=== PATIENT | female | born 1995 | race Caucasian/White ===

== ENCOUNTER 2017-05-12 07:25 | Emergency (ER) | payer OTHER ==
[~2017-05-12] VITALS: Ht 160 cm; Wt 71.7 kg
--- OUTSIDE RECORDS SUMMARY | 2017-05-12 07:32 | XMS REPORT ---
Author Author TONIO TORRES Organization [facility] Address [address] [place] [address] Care Team Providers Care Film Historian Name Role Phone TONIO TORRES Unavailable PROBLEMS Unknown Problems ALLERGIES Substance Reaction Event Type Date Status N.K.D.A. Unknown Non Drug Allergy Mar, Unknown SOCIAL HISTORY No smoking Hx information available PLAN OF CARE Activity Details Follow Up prn Reason: VITAL SIGNS Height 5 ft 4 in in 2016-04-10 Weight 149.5 lbs 2016-04-10 Temperature 98.5 degrees Fahrenheit 2016-04-10 Heart Rate 80 bpm 2016-04-10 Respiratory Rate 16 2016-04-10 BMI 25.66 kg/m2 2016-04-10 Blood pressure systolic 102 mmHg 2016-04-10 Blood pressure diastolic 70 mmHg 2016-04-10 MEDICATIONS Medication Instructions Dosage Frequency Start Date End Date Duration Status Escitalopram Oxalate 10 MG Orally Once a day 1 tablet 24h Active Topiramate 25 MG Orally Once a day 1 tablet 24h Active Ranitidine HCl 150 MG Orally Once a day 1 capsule at bedtime 24h Active Spironolactone 50 MG Orally Once a day 1 tablet 24h Active Esomeprazole Magnesium 40 MG Orally Once a day 1 capsule 24h Active Loestrin Fe 04/04 1-20 MG-MCG Active RESULTS Name Result Date Reference Range URINE DRUG SCREEN (IN HOUSE) 2016-04-10 Lot # [id number] Exp date 09/2017 Control + COCAINE NEG AMPH NEG MTD NEG THC NEG OPIATE NEG BENZO NEG PCP NEG BAR NEG OXY NEG MAMP NEG TCA NEG BUP NEG MDMA NEG PROCEDURES Procedure Date Ordered Related Diagnosis Body Site DRUG TEST PRSMV DIR OPT OBS Apr 10, 2016 Preventive Care New Pt. Age 18-39 Apr 10, 2016 IMMUNIZATIONS No Known Immunizations
[2017-05-12] MEDS ORDERED: sertaline (07:39)
[2017-05-12] MEDS ORDERED: LIDOCAINE 2% VISCOUS 15 ML UDC PO ONE (07:45)
[2017-05-12] MEDS ORDERED: ANTACID SUSP 30 ML UDC (MYLANTA) PO ONE (07:45)
--- NOTE | 2017-05-12 07:52 | ED Abdominal Pain ---
General Chief Complaint: Chest Wall/Rib Pain Stated Complaint: CP THIS MORNING ONGOING FOR 2 MONTHS Nursing Triage Note: AMB TO ROOM C/O CHEST PAIN ON AND OFF AFTER HAVING HER GALLBLADDER OUT IN FEB. Sepsis Screen: No Definite Risk Source of Information: Patient Exam Limitations: No Limitations History of Present Illness Date Seen by Provider: May 12, 2017 Time Seen by Provider: 07:36 Initial Comments This 22-year-old young lady presents to the emergency room with complaints of lower chest pain radiating to her back and epigastric pain. Symptoms started after she had her cholecystectomy in February. She had the symptoms pretty much every day in March but they have been less frequent in April. However , she had her most intense episode today. She has not noticed a pattern with exacerbating or alleviating factors or time of day. It does hurt to take a deep breath. She does drink alcohol on the weekends and did drink alcohol this past weekend. She does have history of GERD and takes a PPI daily. She denies any nausea, vomiting, constipation, diarrhea, cough, fever, or other symptoms of acute illness. At the time of discharge. Patient also a bulge that she has a history of hiatal hernia and had endoscopy prior to her cholecystectomy. She has a GI specialist in [place]. Allergies and Home Medications Allergies Coded Allergies: No Known Drug Allergies (Unverified , 05/12/17) Home Medications Pantoprazole Sodium 40 Mg Tablet.dr, 40 MG PO BID Prescribed by: ROSA BEVERLY on 05/12/17 0830 Sucralfate 1 Gm/10 Ml Oral.susp, 1 GM PO QID May substitute tablet to crush and slurry if suspension cost prohibitive Prescribed by: ROSA BEVERLY on 05/12/17 0830 Review of Systems Constitutional: no symptoms reported EENTM: No Symptoms Reported Respiratory: See HPI Cardiovascular: No Symptoms Reported Gastrointestinal: See HPI Genitourinary: No Symptoms Reported Musculoskeletal: no symptoms reported Skin: no symptoms reported Psychiatric/Neurological: No Symptoms Reported Endocrine: No Symptoms Reported Past Aejxayo-Czshff-Vodftl Hx Patient Social History Alcohol Use: Occasionally Uses Recreational Drug Use: No Smoking Status: Never a Smoker Recent Foreign Travel: No Contact w/Someone Who Travel: No Recent Infectious Disease Expo: No Surgeries History of Surgeries: Yes Surgeries: Abdominal (EGD), Gallbladder Respiratory History of Respiratory Disorde: No Cardiovascular History of Cardiac Disorders: No Neurological History of Neurological Disord: No Reproductive System : No Expected Date of Delivery: May 04, 2017 Genitourinary History of Genitourinary Disor: No Gastrointestinal History of Gastrointestinal Di: Yes Gastrointestinal Disorders: Gastroesophageal Reflux, Hiatal Hernia Musculoskeletal History of Musculoskeletal Dis: No Endocrine History of Endocrine Disorders: No HEENT History of HEENT Disorders: No Cancer History of Cancer: No Psychosocial History of Psychiatric Problem: No Integumentary History of Skin or Integumenta: No Physical Exam Vital Signs VS - Last 72 Hours, by Label 05/12/17 05/12/17 07:30 08:48 Temp 97.6 Pulse 76 76 Resp 18 18 B/P (MAP) 102/64 (77) 102/64 Pulse Ox 98 98 O2 Delivery Room Air Capillary Refill : Less Than 3 Seconds General Appearance: WD/WN, no apparent distress HEENT: PERRL/EOMI, normal ENT inspection, pharynx normal Neck: normal inspection Respiratory: lungs clear, normal breath sounds, no respiratory distress, no accessory muscle use, other (normal forced expiration. 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, no motor/sensory deficits, alert, normal mood/affect, oriented x 3 Skin: normal color, warm/dry Progress/Results/Core Measures Results/Orders My Orders Orders - ROSA RUSS MD Lidocaine 2% Viscous 15 Ml (Xylocaine Vi (05/12/17 07:45) Antacid Suspension (Mylanta Suspension (05/12/17 07:45) Chest Pa/Lat (2 View) (05/12/17 08:08) Medications Given in ED Current Medications Medications Dose Ordered Sig/Brian Route Start Time Stop Time Status Last Admin Dose Admin Al Hydrox/Mg Hydrox/Simethicone 30 ml ONCE ONCE PO 05/12/17 07:45 05/12/17 07:48 DC 05/12/17 07:52 30 ML Lidocaine HCl 15 ml ONCE ONCE PO 05/12/17 07:45 05/12/17 07:48 DC 05/12/17 07:52 15 ML Vital Signs/I&O Vital Sign - Last 12Hours 05/12/17 05/12/17 07:30 08:48 Temp 97.6 Pulse 76 76 Resp 18 18 B/P (MAP) 102/64 (77) 102/64 Pulse Ox 98 98 O2 Delivery Room Air Blood Pressure Mean: 77 Progress Note #1: Time: 07:52 Progress Note Patient seen and examined. Since her symptoms seem to be focused around the epigastrium, GI cocktail will be trialed before any further workup is pursued. Progress Note #2: Time: 08:09 Progress Note GI cocktail resolved epigastric pain and tenderness. However, the chest pain persists unchanged. Chest x-ray will be performed after urine test. Diagnostic Imaging Diagonstic Imaging: Xray Plain Films/CT/US/NM/MRI: chest Departure Impression Impression: Primary Impression: Epigastric pain Additional Impression: Atypical chest pain Disposition: 01 HOME, SELF-CARE Condition: Improved Departure-Patient Inst. Decision time for Depature: 08:22 Referrals: NO,LOCAL PHYSICIAN (PCP/Family) Primary Care Physician Patient Instructions: Acute Abdomen (Belly Pain), Chest Pain That Is Not Caused by the Heart (DC), Gastritis Add. Discharge Instructions: Increase your Protonix (pantoprazole) to twice daily dosing for 2 weeks. If insurance will not cover this, you may temporarily switched to omeprazole 20 mg twice daily purchased [id number]. Add Carafate (sucralfate) as prescribed. Follow-up with your primary care provider in 1 to 2 weeks. Discuss potentially testing for H. pylori and/or referral for endoscopy ( scoping of the esophagus and stomach). Avoid the following: Eating large meals, eating close to bedtime, alcohol, tobacco, carbonation, caffeine, chocolate, citrus fruits and juices, tomato products, spicy foods, mint, NSAID medications such as ibuprofen or naproxen, fatty or greasy foods, or anything else you know irritates your stomach. Return to care if symptoms are worsening. For pain try Tylenol (acetaminophen) up to 1000 mg every 6 hours as needed but avoid use of NSAIDs such as naproxen, ibuprofen, aspirin, etc. All discharge instructions reviewed with patient and/or family. Voiced understanding. Scripts Sucralfate (Carafate) 1 Gm/10 Ml Oral.susp 1 GM PO QID, #1200 ML May substitute tablet to crush and slurry if suspension cost prohibitive Prov: ROSA RUSS MD 05/12/17 Pantoprazole Sodium (Pantoprazole Sodium) 40 Mg Tablet. 40 MG PO BID, #30 TAB Prov: ROSA RUSS MD 05/12/17 ROSA RUSS MD May 12, 2017 07:52
[2017-05-12] MEDS ORDERED: PANT40TA3 PO (08:30)
[2017-05-12] MEDS ORDERED: SUCR1ORA5 PO (08:30)
--- NOTE | 2017-05-12 08:39 | Diagnostic Imaging Report ---
INDICATION: Chest pain. TECHNIQUE: PA and lateral films of the chest were obtained at 0837 hours. FINDINGS: The heart and mediastinal silhouette are normal in appearance. The lungs are clear. There is no pneumothorax or pleural fluid. IMPRESSION: Negative chest. Dictated by: Dictated on workstation # [id number]
[2017-05-12 08:48] VITALS: BP 102/64
== END 2017-05-12 08:48 | disposition home or self-care (01) ==
LOC: ER 07:29
DX: R10.13 Epigastric pain (principal); R07.89 Other chest pain; K21.9 Gastro-esophageal reflux disease without esophagitis; Z87.19 Personal history of other diseases of the digestive system; Z90.49 Acquired absence of other specified parts of digestive tract
CPT/HCPCS: 71046